=== PATIENT | female | born 1975 | race Native Hawaiian/Other Pacific Islander ===

== ENCOUNTER 2018-10-06 22:48 | Emergency (ER) | payer OTHER ==
[2018-10-06 22:52] VITALS: RESP 18; TEMP 97.9; O2SAT 99
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
[2018-10-07 03:17] VITALS: BP 139/90; PULSE 80
== END 2018-10-07 02:50 | disposition home or self-care (01) ==
LOC: H.ER 22:48
DX: F10.14 Alcohol abuse with alcohol-induced mood disorder (principal)